=== PATIENT | female | born 1995 | race Caucasian/White ===

== ENCOUNTER 2017-02-25 07:34 | Emergency (ER) | payer BC ==
[2017-02-25 07:59] VITALS: BP 114/60
--- NOTE | 2017-02-25 08:36 | UC ---
Ricardo Swift Angela, scribed for Lamar Scott MD on 02/25/17 at 0811 . General HPI - HPI Summary HPI Summary: This pt is a 22 y/o female accompanied by her mother presenting to [facility] c/o cough, sore throat, chills, and congestion x4 days. She reports that on Sunday (02/21/27) she woke up with a fever and headache. Pt notes being in bed for most of her college break. 2 days ago, pt had fever and chills. Pt has been taking OTC medicine with some relief. Last time she took medicine was yesterday, none today. This morning pt was coughing up yellow sputum with blood streaks. She denies SOB, wheezing, abd pain, nausea, diarrhea. Pt notes she has had sick contacts in the bus, with people coughing. Did not get flu vaccine. Pt does not get her menses as she is on control. She currently uses ointment for facial acne. Pt is going back to college today. No nausea, vomiting. No rash. PT with sore throat x 2 days. No OTC meds taken today Patients medication reviewed this visit. - History of Current Complaint Stated Complaint: SORE THROAT CONGESTION COUGHING UP BLOOD Time Seen by Provider: 02/25/17 07:48 Hx Obtained From: Patient Hx Last Menstrual Period: ON CONTROL/IUD Onset/Duration: Lasting Days, Still Present Timing: Constant Alleviating: OTC medicine Associated Signs & Symptoms: Positive: Cough, Fever, Headache, Other - POS: chills, congestion, sore throat. Negative: Abdominal Pain, Diarrhea, Nausea, SOB, Vomiting, Wheezing - Allergy/Home Medications Allergies/Adverse Reactions: Allergies Allergy/AdvReac Type Severity Reaction Status Date / Time No Known Allergies Allergy Verified 01/29/13 02:12 Home Medications: Home Medications Dextromethorphan-Phenylephrine [Day Time Multi-Symptom Co 10-5-325 mg] 1 tab PO Q4H PRN 02/25/17 [History Confirmed 02/25/17] Iud 1 applic VAGINAL DAILY 02/25/17 [History Confirmed 02/25/17] tretinoin 0.03% (NF) [Retin-A 0.03% (NF)] 1 applic TOPICAL DAILY 02/25/17 [ History Confirmed 02/25/17] PMH/Surg Hx/FS Hx/Imm Hx Previously Healthy: Yes Other Endocrine History: DENIES: diabetes Other Cardiovascular History: DENIES: HTN - Surgical History Surgical History: None - Family History Known Family History: Positive: Unknown - pt is adopted, FHx is unknown - Social History Occupation: Student Lives: With Family Alcohol Use: Rare Substance Use Type: None Smoking Status (MU): Never Smoked Tobacco - Immunization History Most Recent Influenza Vaccination: 01/12 Most Recent Pneumonia Vaccination: n/a Review of Systems Constitutional: Fever, Chills Skin: Negative Eyes: Negative ENT: Sore Throat, Sinus Congestion Respiratory: Cough, Other - NEG: SOB, wheezing Cardiovascular: Negative Gastrointestinal: Negative Genitourinary: Negative Motor: Negative Neurovascular: Negative Musculoskeletal: Negative Neurological: Headache Psychological: Negative Is Patient Immunocompromised?: No All Other Systems Reviewed And Are Negative: Yes Physical Exam Triage Information Reviewed: Yes Appearance: No Pain Distress, Well-Nourished, Other: - A+Ox3, appropriate, tired appearing Vital Signs: Initial Vital Signs Temp 98.2 F 02/25/17 07:50 Pulse 95 02/25/17 07:50 Resp 16 02/25/17 07:50 BP 114/60 02/25/17 07:50 Pulse Ox 98 02/25/17 07:50 Vital Signs Reviewed: Yes Eye Exam: Normal ENT: Positive: Nasal congestion, Nasal drainage, TM dull - right TM + fluid, retraction left turbinates inflammed and boggy + PND mmoist no exudate, mild erythema. Negative: TMs normal Dental Exam: Normal Neck exam: Normal Neck: Positive: Supple, Nontender, No Lymphadenopathy Respiratory Exam: Normal Respiratory: Positive: Chest non-tender, No respiratory distress, No accessory muscle use, Other: - coarse cough, scattered wheeze - improved with coug Cardiovascular Exam: Normal Cardiovascular: Positive: RRR, No Murmur, Pulses Normal Abdominal Exam: Normal Abdomen Description: Positive: Nontender, No Organomegaly, Soft Bowel Sounds: Positive: Present Musculoskeletal Exam: Normal Neurological Exam: Normal Psychological Exam: Normal Skin Exam: Normal Diagnostics - Radiology Chest XR Xray Interpretation: Positive (See Comments) - IMPRESSION: small left lower lobe infiltrate. ED physician has reviewed this radiology report and agrees. Radiology Interpretation Completed By: Radiologist Re-Evaluation - Re-Evaluation First Eval Comment: reviewed CXR with pt and mom. Rx Augmentin. hydrate. tessalon pearls. secretion precaution. humidifiy. school note. f/u with student [facility] Course/Dx - Course Course Of Treatment: Pt presents with fatigue and fever x 3 days. Pt developed cough with yellow sputum and blook streaks as well as sore throat yesterday. No analgesia, OTC Meds today. Pt with scattered wheeze and coarse cough exam. Will check CXR. secretion precaution. motrin/apap. abx. flonase. school note - Differential Dx - Multi-Symptom Provider Diagnoses: pneumonia Discharge - Discharge Plan Condition: Stable Disposition: HOME Prescriptions: Albuterol HFA INHALER* [Ventolin HFA Inhaler*] 1 puff INH Q4H PRN #1 mdi PRN Reason: wheeze Amoxicillin/Clavulanate TAB* [Augmentin TAB 875*] 875 mg PO BID #20 tab Benzonatate CAP* [Tessalon 100 MG CAP*] 100 mg PO TID #15 cap Patient Education Materials: Community Acquired Pneumonia (ED) Forms: *Gen. Provider Communication, *School Release Referrals: Hung Foss MD [Medical Doctor] - Additional Instructions: - Stay well hydrated. Drink plenty of non-alcoholic, non-caffinated beverages. - After you have been on antibiotics for 2 days - change your toothbrush and your pillowcase. These infections are spread by secretions - do NOT share eating or drinking utensils - clean items you share with other people such as cell phones, computer mouse, TV remote, computer tablets, etc - Alternate ibuprofen (Advil, Motrin) 600mg and Tylenol every 3 hours for pain or fever. Take with food. Do NOT take for more than 4-5 days. -Use inhaler 2 puffs every 4 hours today, then every 4 hours as needed - Okay to take Cough medication as prescribed. - Humidify the room where you sleep to help keep your secretions moist - Contact the [facility] tomorrow to schedule a follow-up appointment this week. The documentation as recorded by the Ricardo irving Angela accurately reflects the service I personally performed and the decisions made by me, Lamar Scott MD.
--- NOTE | 2017-02-25 08:45 | RAD ---
INDICATION: Cough, fever, blood-tinged sputum. COMPARISON: There are no prior studies available for comparison. TECHNIQUE: Dual-energy PA and lateral views of the chest were obtained. FINDINGS: The heart is within normal limits in size. Mediastinal and hilar contours appear within normal limits. There is a small infiltrate in the left lower lobe. No pleural effusion is seen. There is a [id number] dorsal lumbar scoliosis convex toward the left in the upper dorsal region, toward the right in the mid and lower dorsal region and toward the left in the lumbar region. IMPRESSION: SMALL LEFT LOWER LOBE INFILTRATE.
== END 2017-02-25 09:20 | disposition home or self-care (01) ==
LOC: UCEAST 07:34
DX: J18.9 Pneumonia, unspecified organism (principal); J02.9 Acute pharyngitis, unspecified
CPT/HCPCS: 71020; 87651; 99212; G0463